=== PATIENT | male | born 1965 | race Caucasian/White ===

== ENCOUNTER 2019-02-18 02:49 | Emergency (ER) | payer OTHER ==
[2019-02-18 03:10] LABS: #Basophils 0.1 thou/uL (0.0-0.2); #Lymphocytes 3.1 thou/uL (1.20-3.40); #Monocytes 0.6 thou/uL (0.11-0.59); #Neutrophils 3.6 thou/uL (1.40-6.50); %Basophils 1.6 % (0.0-1.0); %Eosinophils 0.5 % (0.0-10.0); %Lymphocytes 41.6 % (21.0-51.0); %Monocytes 7.8 % (0.0-10.0); %Neutrophils 48.5 % (42.0-75.0); Hemoglobin 14.4 g/dL (14.0-18.0); Mean Corpuscular HGB CONC 34.6 g/dL (32.0-36.0); Mean Corpuscular Hemoglobin 33.8 pg (27.0-31.0); Mean Corpuscular Volume 97.7 fL (78.0-98.0); Mean Platelet Volume 7.1 fL (7.4-10.4); Platelet Count 272 thou/uL (130-400); RBC Distribution Width 11.6 % (11.5-14.5); Red Blood Cell (RBC) Count 4.27 mill/uL (4.70-6.10); White Blood Cell (WBC) Count 7.4 thou/uL (4.8-10.8)
[2019-02-18 03:28] LABS: ALT (SGPT) 21 U/L (8-55); AST (SGOT) 21 U/L (5-34); Albumin 4.1 g/dL (3.5-5.0); Alkaline Phosphatase 59 U/L (40-110); Anion Gap 15 mmol/L (10-20); BUN (Urea Nitrogen) 18 mg/dL (8.4-25.7); Bilirubin, Total 0.6 mg/dL (0.2-1.2); Calc. Creatinine Clearance 0 mL/min (70-130); Calcium 8.9 mg/dL (7.8-10.44); Carbon Dioxide 22 mmol/L (22-29); Chloride 104 mmol/L (98-107); Estimated GFR-MDRD 56; Globulin 2.6 g/dL (2.4-3.5); Glucose 149 mg/dL (70-105); Magnesium 1.9 mg/dL (1.6-2.6); Potassium 3.5 mmol/L (3.5-5.1); Protein, Total 6.7 g/dL (6.0-8.3); Sodium 137 mmol/L (136-145)
[2019-02-18] MEDS ORDERED: Aspirin Chewable 81 MG TAB ONE (04:11)
--- NOTE | 2019-02-18 08:51 | RAD ---
PORTABLE CHEST 1 VIEW: DATE: 02/18/2019. TIME: 2:46 a.m. HISTORY: Shortness of breath and tachycardia. FINDINGS/IMPRESSION: There are no previous exams for comparison. The heart size is borderline. The lungs are expanded without lobar consolidation, pneumothoraces, fr ank pulmonary edema, or pleural effusions. There is mild prominence of the pulmonary vascularity. POS: OFF
--- NOTE | 2019-02-20 23:09 | EKG ---
Test Reason : Blood Pressure : / mmHG Vent. Rate : 082 BPM Atrial Rate : 082 BPM P-R Int : 136 ms QRS Dur : 072 ms QT Int : 378 ms P-R-T Axes : 071 065 -04 degrees QTc Int : 441 ms Normal sinus rhythm Nonspecific ST and T wave abnormality No STEMI ST depression V3-V6 No ST depression Abnormal ECG Confirmed by VIGNESH Delgado, JAMES ([id number]), editor & co founder AMAN CHAPA ([id number]) on 02/20/2019 11:09:05 PM Referred By: Confirmed By:JAMES MEDELLIN M.D.
--- NOTE | 2019-02-20 23:10 | EKG ---
Test Reason : Blood Pressure : / mmHG Vent. Rate : 083 BPM Atrial Rate : 083 BPM P-R Int : 178 ms QRS Dur : 072 ms QT Int : 374 ms P-R-T Axes : 040 062 014 degrees QTc Int : 439 ms Normal sinus rhythm No STEMI Normal ECG Confirmed by JAMES MEDELLIN M.D. ([id number]), video editor AMAN CHAPA ([id number]) on 02/20/2019 11:09:34 PM Referred By: Confirmed By:JAMES MEDELLIN M.D.
== END 2019-02-18 12:20 ==
LOC: ERS 02:49
DX: N17.9 Acute kidney failure, unspecified (principal); R07.9 Chest pain, unspecified
CPT/HCPCS: 71045; 80053; 83735; 83880; 84443; 84484; 85025; 93005; 96360; 96361

== ENCOUNTER 2019-04-10 04:43 | Emergency (ER) | payer OTHER ==
[2019-04-10 05:17] LABS: #Basophils 0.1 thou/uL (0.0-0.2); #Monocytes 0.6 thou/uL (0.11-0.59); #Neutrophils 4.1 thou/uL (1.40-6.50); %Basophils 0.9 % (0.0-1.0); %Eosinophils 0.6 % (0.0-10.0); %Lymphocytes 38.2 % (21.0-51.0); %Monocytes 7.4 % (0.0-10.0); %Neutrophils 52.9 % (42.0-75.0); Hemoglobin 15.3 g/dL (14.0-18.0); Mean Corpuscular Hemoglobin 32.4 pg (27.0-31.0); Mean Corpuscular Volume 95.3 fL (78.0-98.0); Mean Platelet Volume 7.5 fL (7.4-10.4); Platelet Count 271 thou/uL (130-400); RBC Distribution Width 11.4 % (11.5-14.5); Red Blood Cell (RBC) Count 4.73 mill/uL (4.70-6.10); White Blood Cell (WBC) Count 7.8 thou/uL (4.8-10.8)
[2019-04-10 05:36] LABS: ALT (SGPT) 40 U/L (8-55); AST (SGOT) 25 U/L (5-34); Albumin 3.9 g/dL (3.5-5.0); Alkaline Phosphatase 76 U/L (40-110); Anion Gap 16 mmol/L (10-20); BUN (Urea Nitrogen) 18 mg/dL (8.4-25.7); Bilirubin, Total 0.7 mg/dL (0.2-1.2); Calc. Creatinine Clearance 0 mL/min (70-130); Carbon Dioxide 22 mmol/L (22-29); Chloride 103 mmol/L (98-107); Estimated GFR-MDRD 55; Globulin 2.8 g/dL (2.4-3.5); Glucose 226 mg/dL (70-105); Magnesium 1.7 mg/dL (1.6-2.6); Potassium 4.7 mmol/L (3.5-5.1); Protein, Total 6.7 g/dL (6.0-8.3); Sodium 136 mmol/L (136-145)
== END 2019-04-10 06:04 ==
LOC: ERS 04:43
DX: I47.1 Supraventricular tachycardia (principal); Z87.891 Personal history of nicotine dependence
CPT/HCPCS: 36415; 80053; 83735; 84484; 85025; 93005

== ENCOUNTER 2019-05-03 19:38 | Inpatient (IN) | payer OTHER ==
[2019-05-03] MEDS ORDERED: Aspirin Chewable 81 MG TAB ONE (19:55)
[2019-05-03 20:04] LABS: #Basophils 0.1 thou/uL (0.0-0.2); #Lymphocytes 2.9 thou/uL (1.20-3.40); #Monocytes 0.8 thou/uL (0.11-0.59); %Basophils 1.5 % (0.0-1.0); %Eosinophils 0.6 % (0.0-10.0); %Lymphocytes 36.7 % (21.0-51.0); %Monocytes 9.8 % (0.0-10.0); %Neutrophils 51.4 % (42.0-75.0); Hemoglobin 15.2 g/dL (14.0-18.0); Mean Corpuscular HGB CONC 34.3 g/dL (32.0-36.0); Mean Corpuscular Volume 96.1 fL (78.0-98.0); Mean Platelet Volume 7.2 fL (7.4-10.4); Platelet Count 275 thou/uL (130-400); RBC Distribution Width 11.5 % (11.5-14.5); White Blood Cell (WBC) Count 7.8 thou/uL (4.8-10.8)
[2019-05-03 20:11] LABS: INR-International Normal Ratio 0.9; PTT 30.6 SEC (22.9-36.1); Prothrombin Time 12.5 SEC (12.0-14.7)
--- NOTE | 2019-05-03 20:16 | RAD ---
FRONTAL VIEW CHEST: Indication: Chest tightness. FINDINGS: Comparing to 02-18-19 exam, no significant interval detrimental change. There is enlargement of the c ardiac silhouette with prominence of the pulmonary vasculature. IMPRESSION: Findings which may relate to fluid overload from CHF. Recommend clinical correlation in this regard. POS: MASTER
[2019-05-03 20:18] LABS: ALT (SGPT) 25 U/L (8-55); AST (SGOT) 18 U/L (5-34); Albumin 3.9 g/dL (3.5-5.0); Alkaline Phosphatase 68 U/L (40-110); Anion Gap 15 mmol/L (10-20); BUN (Urea Nitrogen) 14 mg/dL (8.4-25.7); Bilirubin, Total 0.6 mg/dL (0.2-1.2); Calc. Creatinine Clearance 0 mL/min (70-130); Calcium 8.8 mg/dL (7.8-10.44); Carbon Dioxide 23 mmol/L (22-29); Chloride 106 mmol/L (98-107); Estimated GFR-MDRD 59; Globulin 2.8 g/dL (2.4-3.5); Glucose 141 mg/dL (70-105); Potassium 4.4 mmol/L (3.5-5.1); Protein, Total 6.7 g/dL (6.0-8.3); Sodium 140 mmol/L (136-145)
[2019-05-03] MEDS ORDERED: Diltiazem 125 MG/25 ML ONE (20:59)
--- NOTE | 2019-05-03 20:59 | PDOC.FPRHP ---
- History of Present Illness Chief Complaint: Lightheadedness History of Present Illness: 54yo incarcerated M presented to the ED via EMS w/ complaint of lightheadedness and findings of tachycardia. Pt stated that he was walking back from lunch and bent over and immediately started to feel very lightheaded and experience chest tightness. He was checked out in the [facility] and was found to have a rapid heart rate. EMS found him to have a rate exceeding 200 bpm. They attempted adenosine conversion but were unsuccessful. Pt then received a loading dose of cardizem and converted to NSR. At time of eval pt was asymptomatic. Pt notes that he has had several episodes of SVT in the past. First episode was 5 years ago. He has been having them more frequently. Only takes metoprolol for this. Has been able to self convert a few times with valsalva but not today. 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 ED Course: 18 adenosine in route w/o conversion. Given loading dose of cardizem 16mg and converted to NSR. Started on cardizem gtt. 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 denies: edema Gastrointestinal: reports: nausea, vomiting. denies: diarrhea, constipation Genitourinary: denies: incontinence, dysuria Skin: denies: rashes, lesions Musculoskeletal: denies: pain, tenderness Neurological: reports: other (lightheadedness). denies: numbness, syncope Psychological: denies: depression, other - Vital signs BP: 113/74, MAP: 87, Pulse: 88, Resp: 17, Pain: 0, O2 sat: 97 on (Room Air), Wt : 88kg - Physical Exam Constitutional: NAD, awake, alert and oriented, well developed HEENT: normocephalic and atraumatic, EOMI, grossly normal vision, grossly normal hearing Neck: supple, FROM, no JVD Heart: RRR, normal S1/S2, no murmurs/rubs/gallops, pulses present, no edema Lungs: CTAB, no respiratory distress, good air movement, no rales/rhonchi, no wheezing Abdomen: soft, non-tender, bowel sounds present Musculoskeletal: normal structure, normal tone Neurological: no focal deficit, CN II-XII intact Skin: no rash/lesions, good turgor Heme/Lymphatic: no unusual bruising or bleeding, no purpura Psychiatric: normal mood and affect, good judgment and insight, intact recent and remote memory FMR H&P: Results - Labs Result Diagrams: 05/03/19 19:48 05/04/19 04:40 Lab results: WBC 7.8 thou/uL (4.8-10.8) 05/03/19 19:48 Hgb 15.2 g/dL (14.0-18.0) 05/03/19 19:48 Hct 44.2 % (42.0-52.0) 05/03/19 19:48 MCV 96.1 fL (78.0-98.0) 05/03/19 19:48 Plt Count 275 thou/uL (130-400) 05/03/19 19:48 Neutrophils % 51.4 % (42.0-75.0) 05/03/19 19:48 Sodium 140 mmol/L (136-145) 05/03/19 19:48 Potassium 4.4 mmol/L (3.5-5.1) 05/03/19 19:48 Chloride 106 mmol/L (98-107) 05/03/19 19:48 Carbon Dioxide 23 mmol/L (22-29) 05/03/19 19:48 BUN 14 mg/dL (8.4-25.7) 05/03/19 19:48 Creatinine 1.26 mg/dL (0.7-1.3) 05/03/19 19:48 Glucose 141 mg/dL (70-105) H 05/03/19 19:48 Calcium 8.8 mg/dL (7.8-10.44) 05/03/19 19:48 Total Bilirubin 0.6 mg/dL (0.2-1.2) 05/03/19 19:48 AST 18 U/L (5-34) 05/03/19 19:48 ALT 25 U/L (8-55) 05/03/19 19:48 Alkaline Phosphatase 68 U/L (40-110) 05/03/19 19:48 Serum Total Protein 6.7 g/dL (6.0-8.3) 05/03/19 19:48 Albumin 3.9 g/dL (3.5-5.0) 05/03/19 19:48 - EKG Interpretation EKG: normal sinus rhythm, Rate (beats per minute): 83, with no ectopics, Interpretation: normal EKG, CT interval 156 ms - Radiology Interpretation Chest x-ray Status: report reviewed by me (Findings which may suggest fluid overload from CHF. Correlate clinically.) FMR H&P: A/P - Problem List (1) Paroxysmal SVT (supraventricular tachycardia) Current Visit: Yes Status: Acute Code(s): I47.1 - SUPRAVENTRICULAR TACHYCARDIA (2) GERD (gastroesophageal reflux disease) Current Visit: Yes Status: Chronic Code(s): K21.9 - GASTRO-ESOPHAGEAL REFLUX DISEASE WITHOUT ESOPHAGITIS - Plan Paroxysmal Superventricular Tachycardia - Several episodes in the past, self converted on a few occasions - Adenosine unsuccessful initially, converted with loading cardizem w/ subsequent drip - Continue cardizem gtt w/ titration, plan for transition to oral - Consult cardiology in a.m. - Tele for continued cardiac rhythm monitoring - Echo to evaluate for possible underlying cardiomyopathy and CXR w/ findings related to CHF - clinically no signs of fluid overload Chronic problems GERD - Pepcid BID VTE: Lovenox IVF: SL, gtt Code: Full Deit: HH Dispo: Admit tele obs. ELOS <48 PCP: ANDRES FMR H&P: Upper Level - Pertinent history 54 yo M w/ PMH of recurrent SVT, distant IV drug use and alcohol use presents from [facility] for weakness and confusion and found to be in SVT on arrival @ a rate of approx 150. Successfully converted with adenosine in ER. Pt reports complete resolution of symptoms after successful cardioversion. He did report some chest discomfort that he is unable to describe during episode of rapid heart rate, denies SOB, nvdc, diaphoresis and abd pain. No recent alcohol or drug use. - Pertinent findings ROS: As above PE: Gen: NAD HEENT: NCAT, PERRLA, EOMI, Trach midline CV: RRR No MRG Resp: CTA bl no wrr Abd: Soft NTND bsx4 Neuro: No focal deficit Ext: No clubbing cyanosis or edema Psych: alert and cooperative - Plan Date/Time: 05/03/192057 I, Freddy Kaur DO, have evaluated this patient and agree with findings/ plan as outlined by [employer] certified internetwork expert resident. Pertinent changes/additions are listed here. 1) AVNRT/SVT - recurrent will admit to tele and cont diltiazem drip - consider cards consult in am vs transition to oral ccb for control of symptoms - trend troponins 2) H/O substance and alcohol abuse: no recent use - aware Dispo: Stable, admit to telemetry for continued observation. Consider conversion to oral CCB in am if rate remains controlled overnight. Addendum - Attending - Attending Attestation Date/Time: 05/04/19 5464 I personally discussed the patient with Dr Herzog at time of admission. I agree with the History, Examination, Assessment and Plan documented above with any addition or exceptions noted below.
[2019-05-03 23:03] VITALS: BMI 26.9
[2019-05-03] MEDS ORDERED: hydrOXYzine 10 MG TAB PO PRN (23:31)
[2019-05-04] MEDS ORDERED: Diltiazem 125 MG in Sodium Chloride 0.9% 100 ML IVPB SCH ×3 (00:36→09:00)
[2019-05-04 02:11] LABS: Troponin I 0.039 ng/mL (< 0.028)
[2019-05-04 05:16] LABS: Anion Gap 10 mmol/L (10-20); BUN (Urea Nitrogen) 14 mg/dL (8.4-25.7); Calc. Creatinine Clearance 110 mL/min (70-130); Calcium 8.3 mg/dL (7.8-10.44); Carbon Dioxide 23 mmol/L (22-29); Chloride 108 mmol/L (98-107); Estimated GFR-MDRD 84; Glucose 99 mg/dL (70-105); Potassium 4.2 mmol/L (3.5-5.1); Sodium 137 mmol/L (136-145)
[2019-05-04 05:19] LABS: Troponin I 0.027 ng/mL (< 0.028)
--- NOTE | 2019-05-04 05:44 | PDOC.FM ---
- Subjective Subjective: Patient has no complaints this morning. His HR has been in the 60s and 70s during the night. - Objective Vital Signs & Weight: Vital Signs (12 hours) Temp Pulse Resp BP Pulse Ox 05/04/19 04:28 98.1 F 70 18 114/76 98 05/03/19 23:10 79 17 126/68 05/03/19 22:15 98.4 F 74 16 124/82 97 Weight Weight 87.77 kg Result Diagrams: 05/03/19 19:48 05/04/19 04:40 Phys Exam - Physical Examination Constitutional: NAD HEENT: moist MMs Neck: no JVD, supple, full ROM Respiratory: no wheezing, no rhonchi, clear to auscultation bilateral Cardiovascular: RRR, no significant murmur Gastrointestinal: soft, non-tender, no distention, positive bowel sounds Musculoskeletal: no edema, pulses present Neurological: normal sensation, moves all 4 limbs Psychiatric: normal affect, A&O x 3 Skin: no rash, normal turgor Dx/Plan (1) Paroxysmal SVT (supraventricular tachycardia) Code(s): I47.1 - SUPRAVENTRICULAR TACHYCARDIA Status: Acute (2) GERD (gastroesophageal reflux disease) Code(s): K21.9 - GASTRO-ESOPHAGEAL REFLUX DISEASE WITHOUT ESOPHAGITIS Status: Chronic - Plan Plan: Patient is a 54 yo male with hx of SVT who presents after conversion of SVT to NSR: #Paroxysmal Superventricular Tachycardia - Several episodes in the past, self converted on a few occasions - Adenosine 12 mg unsuccessful initially, converted with loading cardizem w/ subsequent drip - Continue cardizem gtt w/ titration, plan for transition to oral later today - Consult Cardiology this morning, consider EP consult based on Cardio recs - Placed on Telemetry for continued cardiac rhythm monitoring - Echo to evaluate for possible underlying cardiomyopathy and CXR w/ findings related to CHF - clinically no signs of fluid overload - hold home Metoprolol while on Cardizem #GERD - Pepcid BID VTE: Lovenox IVF: SL, gtt Code status: FULL Deit: HH Dispo: Stable, admitted to observation on telemetry. Plan for transition to oral CCB later today. Expect discharge in <48 hrs. PCP: ANDRES Addendum - Attending - Attending Attestation Date/Time: 05/04/19 1001 I personally evaluated the patient and discussed the management with Dr. Alexandra. I agree with the History, Examination, Assessment and Plan documented above with any addition or exceptions noted below. Patient is stable on cardizem drip. He has been seen by cardiology who recommends ablation. Will consult EP.
[2019-05-04] MEDS ORDERED: Diltiazem HCl SR 60 mg Capsule PO SCH (09:00)
[2019-05-04] MEDS: Enoxaparin Sodium 40 MG/0.4 ML SYRINGE SC SCH (10:14)
[2019-05-04] MEDS: Famotidine 20 MG TAB PO SCH ×2 (10:14→22:11)
--- NOTE | 2019-05-04 13:50 | CON ---
DATE OF CONSULTATION: HISTORY OF PRESENT ILLNESS: A 54-year-old gentleman with history of SVT, who presents for recurrent palpitations. The patient has a long history of SVT. The patient states that he had his first episode approximately 4 years ago. The patient has had several episodes most recently. He was in the emergency room with SVT and had to undergo electrical cardioversion. He states that he has been taking his medication. Once again, he developed rapid palpitations. He felt lightheaded. The patient denied having any chest discomfort. PAST MEDICAL HISTORY: 1. SVT. 2. Abdominal surgery and knee surgery. ALLERGIES: NONE. MEDICATIONS: 1. Metoprolol 50 b.i.d. 2. Aspirin 81 daily. 3. Prilosec 20 daily. FAMILY HISTORY: Positive family history of heart disease. REVIEW OF SYSTEMS: Ten-point system otherwise unremarkable. PHYSICAL EXAMINATION: GENERAL: A well-developed gentleman, in no acute distress. VITAL SIGNS: Blood pressure 122/78. NECK: No jugular venous distention. LUNGS: Clear to auscultation. HEART: Regular rate and rhythm. Normal S1 and S2. No murmurs. ABDOMEN: Nondistended. EXTREMITIES: No edema. LABORATORY DATA: Sodium 137, potassium 4.2, chloride 108, bicarbonate 23, BUN 14, and creatinine 0.93. Troponin 0.027. White blood cell count 7.8, hemoglobin 15.2, hematocrit 44.2, and platelets are 273. His INR was 0.9. His EKG revealed normal sinus rhythm with a normal ECG. Telemetry monitoring supraventricular tachycardia. IMPRESSION: Supraventricular tachycardia. PLAN: This gentleman presents with SVT. We would recommend EP consultation and probable ablation since he has these symptoms occur frequently. We will follow this patient with you through his hospitalization. Job ID: [id number] [facility]
--- NOTE | 2019-05-04 14:27 | EKG ---
Test Reason : Blood Pressure : / mmHG Vent. Rate : 083 BPM Atrial Rate : 083 BPM P-R Int : 156 ms QRS Dur : 080 ms QT Int : 382 ms P-R-T Axes : 076 060 021 degrees QTc Int : 448 ms Normal sinus rhythm Normal ECG Confirmed by DORIAN GARCIA ([id number]), digital editor MANDY ZUNIGA ([id number]) on 05/04/2019 2:26:42 PM Referred By: Confirmed By:DORIAN GARCIA
[2019-05-04] MEDS: Acetaminophen 325 MG TAB PO PRN ×2 (15:29→22:11)
[2019-05-05 05:25] LABS: #Basophils 0.1 thou/uL (0.0-0.2); #Eosinphils 0.1 thou/uL (0.0-0.7); #Lymphocytes 2.7 thou/uL (1.20-3.40); #Monocytes 0.9 thou/uL (0.11-0.59); #Neutrophils 3.1 thou/uL (1.40-6.50); %Eosinophils 0.8 % (0.0-10.0); %Lymphocytes 39.1 % (21.0-51.0); %Monocytes 13.5 % (0.0-10.0); %Neutrophils 44.7 % (42.0-75.0); Hemoglobin 15.4 g/dL (14.0-18.0); Mean Corpuscular HGB CONC 34.2 g/dL (32.0-36.0); Mean Corpuscular Hemoglobin 32.8 pg (27.0-31.0); Mean Corpuscular Volume 96.1 fL (78.0-98.0); Mean Platelet Volume 7.2 fL (7.4-10.4); Platelet Count 267 thou/uL (130-400); RBC Distribution Width 11.3 % (11.5-14.5); Red Blood Cell (RBC) Count 4.69 mill/uL (4.70-6.10); White Blood Cell (WBC) Count 6.9 thou/uL (4.8-10.8)
[2019-05-05 05:44] LABS: Anion Gap 11 mmol/L (10-20); BUN (Urea Nitrogen) 13 mg/dL (8.4-25.7); Calc. Creatinine Clearance 94 mL/min (70-130); Calcium 9.3 mg/dL (7.8-10.44); Carbon Dioxide 28 mmol/L (22-29); Chloride 104 mmol/L (98-107); Estimated GFR-MDRD 75; Glucose 91 mg/dL (70-105); Potassium 4.3 mmol/L (3.5-5.1); Sodium 139 mmol/L (136-145)
--- NOTE | 2019-05-05 05:44 | PDOC.FM ---
- Subjective Subjective: Patient has no complaints this morning. He is scheduled to have an ablation procedure with Dr. Peck on 05/06. Telemetry overnight shows HR in 50s-60s, with Dilt drip discontinued at 0600 today. - Objective Vital Signs & Weight: Vital Signs (12 hours) Temp Pulse Resp BP BP Pulse Ox 05/05/19 04:58 98 F 73 12 130/89 93 L 05/04/19 22:11 97.6 F 84 16 138/84 96 Weight Weight 82.599 kg I&O: 05/03/19 05/04/19 05/05/19 06:59 06:59 06:59 Intake Total 450 2730 Output Total 1000 3625 Balance -550 -895 Result Diagrams: 05/05/19 04:44 05/05/19 04:44 Phys Exam - Physical Examination Constitutional: NAD HEENT: moist MMs, sclera anicteric Neck: no JVD, supple, full ROM Respiratory: no wheezing, no rhonchi, clear to auscultation bilateral Cardiovascular: RRR, no significant murmur Gastrointestinal: soft, no distention, positive bowel sounds Musculoskeletal: no edema, pulses present Neurological: normal sensation, moves all 4 limbs Psychiatric: normal affect, A&O x 3 Skin: no rash, normal turgor Dx/Plan (1) Paroxysmal SVT (supraventricular tachycardia) Code(s): I47.1 - SUPRAVENTRICULAR TACHYCARDIA Status: Acute (2) GERD (gastroesophageal reflux disease) Code(s): K21.9 - GASTRO-ESOPHAGEAL REFLUX DISEASE WITHOUT ESOPHAGITIS Status: Chronic - Plan Plan: Patient is a 54 yo male with hx of SVT who presents after conversion of SVT to NSR: #Paroxysmal Superventricular Tachycardia - Several episodes in the past, self converted on a few occasions - Adenosine 12 mg unsuccessful initially, converted with loading cardizem w/ subsequent drip - Continue cardizem gtt w/ titration, plan for transition to oral diltiazem later today - Consult Cardiology--Dr. Campoverde--appreciate recs, consider EP consult, started on Metoprolol 25 mg BID and transition cardizem drip to oral diltiazem 60 mg ER BID - Placed on Telemetry for continued cardiac rhythm monitoring--no events of SVT in past 24 hrs - Echo to evaluate for possible underlying cardiomyopathy and CXR w/ findings related to CHF--completed 05/04, showed EF 55-60% - clinically no signs of fluid overload - hold home Metoprolol 50 mg BID while on Cardizem - Consult EP--Dr. Peck--appreciated recs, will plan for ablation on 05/06 @ 1130 #GERD - Pepcid BID VTE: Lovenox IVF: SL, gtt Code status: FULL Deit: HH Dispo: Stable, admitted to observation on telemetry. Plan for transition to oral CCB later today. Plan for ablation procedure with Dr. Peck on 05/06. Expect discharge in 2-3 days. PCP: [facility] Addendum - Attending - Attending Attestation Date/Time: 05/05/19 1028 I personally evaluated the patient and discussed the management with Dr. Alexandra. I agree with the History, Examination, Assessment and Plan documented above with any addition or exceptions noted below. Patient is rate controlled. He is scheduled for ablation tomorrow.
[2019-05-05] MEDS: Diltiazem HCl SR 60 mg Capsule PO SCH ×2 (09:37→20:36)
[2019-05-05] MEDS: Famotidine 20 MG TAB PO SCH ×2 (09:37→20:36)
[2019-05-05] MEDS: Enoxaparin Sodium 40 MG/0.4 ML SYRINGE SC SCH (09:37)
[2019-05-05] MEDS: Aspirin 81 mg Enteric Coated Tablet PO SCH (09:37)
[2019-05-05] MEDS: Acetaminophen 325 MG TAB PO PRN (09:38)
--- NOTE | 2019-05-06 06:02 | PDOC.FM ---
- Subjective Subjective: Patient resting in bed this morning, appears comfortable. Voices no complaints. Says he was able to get his lunch and dinner meals yesterday. Telemetry overnight shows no events, has been in sinus rhythm in the 60s-70s. - Objective Vital Signs & Weight: Vital Signs (12 hours) Temp Pulse Resp BP Pulse Ox 05/06/19 04:26 98.0 F 70 14 108/78 97 05/05/19 20:00 94 L 05/05/19 19:37 98.1 F 67 20 108/75 94 L Weight Weight 84.323 kg I&O: 05/04/19 05/05/19 05/06/19 06:59 06:59 06:59 Intake Total 450 2730 1660 Output Total 1000 3625 200 Balance -550 -895 1460 Result Diagrams: 05/05/19 04:44 05/05/19 04:44 Phys Exam - Physical Examination Constitutional: NAD HEENT: moist MMs, sclera anicteric Neck: no JVD, supple, full ROM Respiratory: no wheezing, no rhonchi, clear to auscultation bilateral Cardiovascular: RRR, no significant murmur Gastrointestinal: soft, non-tender, positive bowel sounds Musculoskeletal: no edema, pulses present Neurological: normal sensation, moves all 4 limbs Psychiatric: normal affect, A&O x 3 Skin: no rash, normal turgor Dx/Plan (1) Paroxysmal SVT (supraventricular tachycardia) Code(s): I47.1 - SUPRAVENTRICULAR TACHYCARDIA Status: Acute (2) GERD (gastroesophageal reflux disease) Code(s): K21.9 - GASTRO-ESOPHAGEAL REFLUX DISEASE WITHOUT ESOPHAGITIS Status: Chronic - Plan Plan: Patient is a 54 yo male with hx of SVT who presents after conversion of SVT to NSR: #Paroxysmal Superventricular Tachycardia - Several episodes in the past, self converted on a few occasions - Adenosine 12 mg unsuccessful initially, converted with loading cardizem w/ subsequent drip - Cardizem gtt w/ titration discontinued on 05/05 and transitioned to oral Diltiazem ER 60 mg BID - Consult Cardiology--Dr. Campoverde--appreciate recs, rec EP consult, started on Metoprolol 25 mg BID and transition cardizem drip to oral diltiazem - Placed on Telemetry for continued cardiac rhythm monitoring--no events of SVT in past 24 hrs - Echo to evaluate for possible underlying cardiomyopathy and CXR w/ findings related to CHF--completed 05/04, showed EF 55-60% - clinically no signs of fluid overload - hold home Metoprolol 50 mg BID while on Cardizem - Consult EP--Dr. Peck--appreciated recs, will plan for ablation on 05/06 @ 1130 #GERD - Pepcid BID VTE: Lovenox IVF: SL, gtt Code status: FULL Deit: HH Dispo: Stable, admitted to observation on telemetry. Plan for ablation procedure with Dr. Peck later this morning. Expect discharge in 1-2 days. PCP: [facility] Addendum - Attending - Attending Attestation Date/Time: 05/06/19 9976 I personally evaluated the patient and discussed the management with Dr. Alexandra. I agree with the History, Examination, Assessment and Plan documented above with any addition or exceptions noted below. The patient is in sinus rhythm with rate controlled. Will have ablation today.
[2019-05-06] MEDS: Aspirin 81 mg Enteric Coated Tablet PO SCH (08:44)
[2019-05-06] MEDS ORDERED: Heparin (Artline) 500 ML ONE (10:59)
[2019-05-06] MEDS ORDERED: Heparin 10,000 UNITS/1 ML VIAL ONE (11:01)
[2019-05-06] MEDS ORDERED: Propofol 500 MG/50 ML VIAL ONE ×2 (11:14→11:15)
[2019-05-06] MEDS ORDERED: Isoproterenol 0.2 MG/1 ML AMP ONE (11:51)
--- NOTE | 2019-05-06 12:11 | CON ---
DATE OF CONSULTATION: 05/06/2019 This is Marie Saenz NP dictating a report for Pedro Pekc MD. REASON FOR CONSULTATION: SVT. REFERRING PHYSICIAN: Dr. Alexandra. The physician consulted was Dr. Pedro Peck. This report is dictated as scribe. HISTORY OF PRESENT ILLNESS: Mr. Candelario is a 54-year-old male, who is currently incarcerated. He was having heart racing with palpitations and some chest pressure and was brought to the emergency room for evaluation. He was found to have heart rate of approximately 200 beats per minute. Adenosine cardioversion was unsuccessful. He received a loading dose of Cardizem and converted to sinus rhythm. Other than his heart racing, palpitations, and some mild chest pressure, he was not having any associated symptoms such as diaphoresis, sweating, nausea, or chest pain. He reports that he has had this issue for approximately 4 to 5 years, but has had 3 episodes in the past 8 months had been more frequent. He has been able to terminate his tachy events in the past with Valsalva before but that did not work with this current episode. He has been told in the past that he may need an ablation to address this, thus the EP consultation. Mr. Candelario is feeling well. He denies any current heart racing, palpitations, chest pain, pressure, syncope, near syncope, stroke, or stroke-like symptoms. Adenosine 18 mg en route without cardioversion via EMS. He was given loading dose of Cardizem 60 mg, which converted him to sinus rhythm and then was started on a Cardizem drip. REVIEW OF SYSTEMS: Twelve-point review of systems is negative except that listed above in the HPI. ALLERGIES: NO KNOWN DRUG ALLERGIES. PAST MEDICAL HISTORY: History of SVT and acid reflux. PAST SURGICAL HISTORY: Pneumothorax, back surgery, splenectomy, and right total knee. FAMILY HISTORY: Positive for coronary artery disease in his maternal side. SOCIAL HISTORY: Thirty pack-year history. History of alcoholism. History of meth and cocaine use, sober for 17 years, currently incarcerated. PHYSICAL EXAMINATION: VITAL SIGNS: Temperature 98.1, pulse 66, blood pressure 111/73, respirations 20, and oxygen is 95% on room air. GENERAL: The patient is alert oriented. Speech is clear. Affect is appropriate. He is in no apparent distress at the time of exam. NECK: Supple without lymphadenopathy. There is no carotid bruit and trachea is midline. CARDIAC: Heart rate is regular with crisp S1 and S2. PMI is nondisplaced. LUNGS: Clear to auscultation bilaterally without wheezes, crackles, or rhonchi. Respirations are even and unlabored with good bilateral excursion. ABDOMEN: Soft, nontender without palpable masses. EXTREMITIES: Warm and dry to touch. Well perfused without clubbing, cyanosis, or edema. He is in restraints. NEUROLOGIC: Grossly intact and nonfocal. DATABASE: Laboratories reviewed and is unremarkable. Telemetry and EKGs were all personally reviewed and reflect sinus rhythm. There was an episode of SVT on 05/03 at approximately midnight that was 5 minutes in duration. Onset was with PACs and PVCs episode. We see a short RP interval, which spontaneously terminates with a slight conversion pause of 1 second before restoring sinus rhythm. IMPRESSION: 1. 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 2. Ejection fraction preserved at 55% to 60% by echo on 05/04/2019 with a normal size atrium. PLAN AND RECOMMENDATIONS: We discussed mechanisms and treatment options for SVT. As he has had these episodes before that have been responsive to Valsalva maneuvers and appear to be possibly AVNRT, we would discuss ablation as a treatment option. He understands the risks, benefits, and alternatives including bleeding at the groin site, bleeding around the heart, possible need for chest tube placement and/or bradycardic arrhythmias, pacemaker. He is willing to proceed. The alternate therapy would be medical management. He was already on the low dose of beta-juliana with metoprolol tartrate 50 mg p.o. b.i.d., but he again prefers ablation. He is n.p.o. today. We will take him down to the EP lab for study and ablation at the earliest convenience. Job ID: [id number]
[2019-05-06] MEDS ORDERED: Fentanyl 100 MCG/2 ML VIAL ONE (13:38)
--- NOTE | 2019-05-06 14:16 | OP ---
DATE OF PROCEDURE: 05/06/2019 PROCEDURES PERFORMED: Electrophysiology study and radiofrequency ablation. REASON FOR PROCEDURE: Mr. Candelario is a 54-year-old male with prior history of recurrent supraventricular tachycardia episodes. He is here for EP study and ablation procedure. DESCRIPTION OF PROCEDURE: The patient received deep sedation by Anesthesia specialist. The left and right femoral venous areas were prepped, draped, and anesthetized using subcutaneous lidocaine. Under ultrasound guidance, both femoral veins were cannulated. On the left side, a 6 and 8-[place]izen [place] sheath were used to introduce an octapolar and decapolar catheter to the right atrium, His bundle, right ventricular, and CS position. Pacing, mapping, and recording were performed at each location. Following findings were noted. Baseline rhythm was sinus rhythm, RR interval 753 msec, DE 121 msec, QRS 56 msec, QT 358 msec, AH 80 msec, HV 43 msec. The AV Wenckebach cycle length was 280 msec. Retrograde Wenckebach cycle length was also 280 msec. Concentric retrograde VA conduction was seen. During the atrial extrastimuli testing, a narrow complex tachycardia was induced with cycle length about 300 msec with short VA timing suggestive of AV clay reentrant tachycardia. VA timing was less than 80 msec. Overdrive ventricular pacing entrained the tachycardia and at termination of the ventricular pacing, VA response was seen suggestive of no atrial tachycardia present. Following that, repeated pacing maneuvers were performed also and on one occasion, AV caly reentrant tachycardia induced with 2:1 AV block in the AV clay level. On the right femoral venous area, an 8-[place]izen [place] sheath was introduced under ultrasound guidance and a 4 mm standard ablation catheter was advanced into the right atrium. 3D map of the right atrium, His bundle, and CS were obtained and slow pathway modification was performed delivering total of 7 lesions at total duration 2 minutes and 12 seconds at 40 richardson. During the application, junctional beats were observed. After the ablation, the AV Wenckebach cycle length was changed to 340 msec. The AV Wenckebach improved to 220 seconds on Isuprel administration. No evidence of slow pathway was noted on burst atrial pacing and also with atrial extrastimuli testing, atrial ERP was measured at 600/240 msec. During burst atrial pacing and Isuprel, bundle-branch ablation was noted with normal HV interval. Both right and left bundle-branch was inducible during rapid atrial pacing. HV interval again was normal at both occasions. No additional tachyarrhythmias were induced on and off Isuprel. At the end of the case, cardiac silhouette did not change and catheter was removed, sheath as well, and hemostasis was obtained with manual pressure. CONCLUSION: 1. Inducible AV clay reentrant tachycardia. 2. Slow pathway modification eliminating inducibility of AV caly reentrant tachycardia and no evidence of slow pathway and with ablation seen. 3. No evidence of accessory pathway present. 4. Rate dependent bundle-branch block is seen with normal HV interval. PLAN: Continue monitoring for recurrent arrhythmias. Job ID: [id number]
[2019-05-06] MEDS: Enoxaparin Sodium 40 MG/0.4 ML SYRINGE SC SCH (14:50)
[2019-05-06] MEDS: Diltiazem HCl SR 60 mg Capsule PO SCH ×2 (14:50→20:23)
[2019-05-06] MEDS: Famotidine 20 MG TAB PO SCH ×2 (14:50→20:23)
[2019-05-06] MEDS ORDERED: Acetaminophen/Codeine 30-300mg Tablet PO PRN ×2 (16:15)
--- NOTE | 2019-05-07 05:44 | PDOC.FM ---
- Subjective Subjective: Patient doing well this morning. Denies any chest pain or any feelings of palpitations. Patient reports procedure went well yesterday. Discussed with patient that we are working with Dr. Peck for further recommendations. Patient agreeable with plan of care. - Objective MAR Reviewed: Yes Vital Signs & Weight: Vital Signs (12 hours) Temp Pulse Resp BP BP Pulse Ox 05/07/19 03:29 98.5 F 83 16 100/68 95 05/07/19 01:01 98.5 F 89 113/72 05/06/19 23:20 99.8 F H 98 16 94/60 94 L 05/06/19 19:20 98.6 F 117 H 17 118/73 95 05/06/19 18:30 124 H 17 119/69 97 Weight Weight 84.323 kg I&O: 05/05/19 05/06/19 05/07/19 06:59 06:59 06:59 Intake Total 2730 1660 1385 Output Total 3625 200 0 Balance -895 1460 1385 Result Diagrams: 05/05/19 04:44 05/05/19 04:44 EKG Reviewed by me: Yes (sinus tach, 115; 140-150 while patient walking) Phys Exam - Physical Examination Constitutional: NAD HEENT: moist MMs, sclera anicteric Neck: supple, full ROM Respiratory: no wheezing, clear to auscultation bilateral Cardiovascular: no significant murmur sinus tach Gastrointestinal: soft, non-tender Musculoskeletal: no edema, pulses present Neurological: non-focal, normal sensation Psychiatric: normal affect, A&O x 3 Skin: no rash, normal turgor Dx/Plan (1) Paroxysmal SVT (supraventricular tachycardia) Code(s): I47.1 - SUPRAVENTRICULAR TACHYCARDIA Status: Acute (2) GERD (gastroesophageal reflux disease) Code(s): K21.9 - GASTRO-ESOPHAGEAL REFLUX DISEASE WITHOUT ESOPHAGITIS Status: Chronic - Plan Plan: Patient is a 54 yo male with hx of SVT who presents after conversion of SVT to NSR: #Paroxysmal Superventricular Tachycardia - Reportedly several episodes in the past, self converted on a few occasions - Adenosine 12 mg unsuccessful initially, converted with loading diltiazem w/ subsequent drip - Diltiazem gtt w/ titration discontinued on 05/05 and transitioned to oral Diltiazem ER 60 mg BID - Consult Cardiology--Dr. Campoverde--appreciate recs, rec EP consult, started on Metoprolol 25 mg BID and transitioned cardizem drip to oral diltiazem - Placed on Telemetry for continued cardiac rhythm monitoring--no events of SVT in past 24 hrs, though has had heart rate in 140s-150s while walking to restroom overnight - Echo to evaluate for possible underlying cardiomyopathy and CXR w/ findings related to CHF -Echo showed EF 55-60% - clinically no signs of fluid overload - Consult EP--Dr. Peck--appreciated recs, Ep study and ablation on 05/06, rec continued monitoring for arrhythmias overnight #GERD - Pepcid BID VTE: Lovenox IVF: SL Code status: FULL Diet: HH Dispo: Stable, admitted to observation on telemetry s/p EP study and ablation. Dr. Peck consulted, appreciate recs. PCP: [facility] Addendum - Attending - Attending Attestation Date/Time: 05/07/19 1040 I personally evaluated the patient and discussed the management with Dr. Alexandra. I agree with the History, Examination, Assessment and Plan documented above with any addition or exceptions noted below. Patient doing well. He had some tachycardia overnight. EP has seen him today and cleared him for discharge with metoprolol.
[2019-05-07 08:23] VITALS: BP 110/77; TEMP 97.3
[2019-05-07] MEDS: Famotidine 20 MG TAB PO SCH (08:45)
[2019-05-07] MEDS: Aspirin 81 mg Enteric Coated Tablet PO SCH (08:45)
[2019-05-07] MEDS: Enoxaparin Sodium 40 MG/0.4 ML SYRINGE SC SCH (08:45)
--- NOTE | 2019-05-07 10:34 | PDOC.EP ---
- Subjective Date: 05/07/19 Time: 10:33 Interval History: Follow up for SVT s/p EPS and ablation on 05/06/19. Denies any heart racing, palpitations, chest pain, pressure, passing out, or bleeding at the groin access sites. - Review of Systems Constitutional: denies: chills, fever, malaise, sweats, weakness, other Respiratory: denies: cough, dry, hemoptysis, pleuritic pain, shortness of breath , SOB with excertion, sputum, wheezing, other Cardiology: denies: chest pain, edema, heart racing, light headedness, paroxysmal noc. dyspnea, orthopnea, palpitations, passing out, pleuritic pain, pressure, swelling, other - Objective Allergies/Adverse Reactions: Allergies Allergy/AdvReac Type Severity Reaction Status Date / Time No Known Allergies Allergy Verified 05/04/19 00:10 Current Medications Acetaminophen (Tylenol) 650 mg PO Q4H PRN PRN Reason: Headache/Fever/Mild Pain (1-3) Last Admin: 05/05/19 09:38 Dose: 650 mg Acetaminophen/Codeine Phosphate (Tylenol #3) 1 tab PO Q4H PRN PRN Reason: Mild Pain (1-3) Acetaminophen/Codeine Phosphate (Tylenol #3) 2 tab PO Q4H PRN PRN Reason: Moderate Pain (4-6) Last Admin: 05/06/19 16:15 Dose: 2 tab Aspirin (Ecotrin) 81 mg PO DAILY [facility] Last Admin: 05/07/19 08:45 Dose: 81 mg Enoxaparin Sodium (Lovenox) 40 mg SC 0900 [facility] Last Admin: 05/07/19 08:45 Dose: 40 mg Famotidine (Pepcid) 20 mg PO BID [facility] Last Admin: 05/07/19 08:45 Dose: 20 mg Hydroxyzine HCl (Atarax) 10 mg PO HS PRN PRN Reason: Insomnia Last Admin: 05/04/19 22:16 Dose: 10 mg Metoprolol Succinate (Toprol Xl) 25 mg PO BID [facility] Last Admin: 05/07/19 08:45 Dose: 25 mg Pantoprazole Sodium (Protonix) 40 mg PO DAILY [facility] Last Admin: 05/07/19 08:45 Dose: 40 mg Sodium Chloride (Flush - Normal Saline) 10 ml IVF PRN PRN PRN Reason: Saline Flush Vital Signs & Weight: Vital Signs Temp Pulse Resp BP BP Pulse Ox 05/07/19 08:55 95 05/07/19 08:03 97.3 F L 79 16 110/77 95 05/07/19 07:50 95 05/07/19 03:29 98.5 F 83 16 100/68 95 05/07/19 01:01 98.5 F 89 113/72 05/06/19 23:20 99.8 F H 98 16 94/60 94 L Weight 185 lb 14.4 oz I/O: I/O 05/06/19 05/07/19 05/08/19 06:59 06:59 06:59 Intake Total 1660 1385 480 Output Total 200 0 Balance 1460 1385 480 - Physical Exam General: alert & oriented x3, appears well, no apparent distress, speech clear, affect appropriate HEENT: mucus membranes moist, normocephaly Neck: supple neck, midline trachea, no JVD/HJR, no masses, no bruit, no lymphadenopathy, no thromegaly Cardiology: regular rate and rhythm, no murmur, regular rate, regular rhythm, PMI nondisplaced Lungs: clear to auscultation, normal breath sounds, no wheeze, rales, rhonchi Skin: groin sites stable - Labs Result Diagrams: 05/05/19 04:44 05/05/19 04:44 - EKG Interpretation EKG shows: Sinus rhythm - Assessment/Plan Assessment/Plan: 1. SVT - EP study on 05/06. Inducible for AVNRT and underwent slow pathway modification. Had sinus tachycardia yesterday evening before metoprolol was given. No futher events overnight or this AM. It was sinus tach, not AVNRT. OK for DC by EP. Continue metoprolol
--- NOTE | 2019-05-07 13:08 | EKG ---
Test Reason : POST ABLATION Blood Pressure : / mmHG Vent. Rate : 087 BPM Atrial Rate : 087 BPM P-R Int : 152 ms QRS Dur : 074 ms QT Int : 372 ms P-R-T Axes : 052 055 007 degrees QTc Int : 447 ms Normal sinus rhythm Normal ECG Confirmed by FRANKLIN PETE ([id number]) on 05/07/2019 1:08:16 PM Referred By: [facility] Confirmed By:FRANKLIN PETE
--- NOTE | 2019-05-07 13:09 | DIS ---
DATE OF ADMISSION: 05/03/2019 DATE OF DISCHARGE: 05/07/2019 ADMITTING RESIDENT: Cristobal Herzog DO. ADMITTING ATTENDING: Iván Giles MD. DISCHARGE RESIDENT: Page Quinonez MD. DISCHARGE ATTENDING: Valentina James MD. CONSULTS: 1. Cardiology, Dr. Campoverde. 2. Electrophysiology, Dr. Peck. PROCEDURES: Electrophysiology study and ablation. IMAGIN. Chest x-ray: Findings may relate to fluid overload from CHF. Recommend clinical correlation. 2. Echo: EF is visually estimated at 55% to 60%. Normal size left atrium. Mildly enlarged right atrium size. Mildly enlarged right ventricle cavity. Left ventricular size is normal. There is a small localized pericardial effusion noted. PRIMARY DIAGNOSIS: Paroxysmal supraventricular tachycardia. SECONDARY DIAGNOSIS: Gastroesophageal reflux disease. DISCHARGE MEDICATIONS: 1. 81 mg aspirin p.o. daily. 2. 20 mg esomeprazole magnesium p.o. daily. 3. 25 mg metoprolol succinate p.o. b.i.d. Discontinued medications; 1. Lovenox. 2. Famotidine. 3. Protonix. 4. Acetaminophen with codeine. 5. Acetaminophen. 6. Metoprolol tartrate 50 p.o. b.i.d. 7. Diltiazem p.o. b.i.d. 8. Hydroxyzine p.o. at bedtime p.r.n. HISTORY OF PRESENT ILLNESS/HOSPITAL COURSE: The patient is a 54-year-old incarcerated male, who presented to the ED with complaint of lightheadedness and findings of tachycardia. EMS had found him to have a rate exceeding 200 beats per minute after which they attempted adenosine conversion, but were unsuccessful. The patient then received a loading dose of Cardizem and converted to normal sinus rhythm, and he was started on a Cardizem drip. The Cardizem drip was then titrated and it was discontinued on 05/05. The patient was transitioned to oral Cardizem ER 60 mg b.i.d. Cardiology was consulted, Dr. Campoverde, and recommended an electrophysiology consult and started on metoprolol 25 mg b.i.d. Electrophysiology, Dr. Peck, was consulted and the patient underwent an electrophysiology study and ablation on 05/06, with continued monitoring overnight recommended on telemetry to watch for arrhythmias. The patient was monitored on telemetry throughout his hospitalization and on the night before discharge, the patient had a bout of tachycardia before the patient had received his metoprolol , but had then remained largely in regular sinus throughout the rest of the evening. Dr. Peck consulted the patient on the day of discharge and said he was stable for discharge with recommendation of continuance of the metoprolol. All of the findings and suggestions were discussed with the patient, who was agreeable with the plan of care. The patient was examined on the day of discharge and found to be in stable condition. DISPOSITION: Stable. DISCHARGE INSTRUCTIONS: 1. Location: [facility]. 2. Diet: Heart healthy. 3. Activity: Cardiopulmonary restrictions. 4. Follow up with primary care provider within 7 days. Job ID: [id number] MTDD
--- NOTE | 2019-05-10 08:11 | PQF ---
GUS MALAGON GABRIEL MD [id number] [facility] [id number] CLINICAL DOCUMENTATION CLARIFICATION FORM: POST DISCHARGE Addendum to original discharge summary date: ____ Late entry note date: __ DATE:05/10/2019 ATTN: BILLY MCLEOD MD Please exercise your independent, professional judgment in responding to the clarification form. Clinical indicators are provided on the bottom of this form for your review Please check appropriate box(s): HEART FAILURE: A. TYPE: [ ] Systolic / HFrEF [ ] Diastolic / HFpEF [ ] Combined Systolic / Diastolic B. ACUITY [ ] Acute [ ] Acute on Chronic [ ] Chronic [ ] Other diagnosis [ ] Unable to determine In addition, please specify: Present on Admission (POA): [ ] Yes [ ] No [ ] Unable to determine For continuity of documentation, please document condition throughout progress notes and discharge summary. Thank You. CLINICAL INDICATORS - SIGNS / SYMPTOMS / LABS Paroxysmal supraventricular tachycardia -Documented in Family medicine progress note on 05/07 by Page Quinonez Placed on telemetry for continued cardiac rhythm monitoring-Documented in Family medicine progress note on 05/07 by Page Quinonez Echo to evaluate for possible underlying cardiomyopathy and CXR w/findings related to CHF-Documented in Family medicine progress note on 05/07 by Page Quinonez Chest x ray :Findings may related to fluid overload from CHF. Recommend clinical correlation-Documented in Discharge summary on 05/07 by Page Quinonez MD Echo:EF is visually estimated at 55 % to 60 %-Documented in Discharge summary on 05/07 by Page Quinonez MD BNP-135.4-Documented in Laboratory RISKS: Paroxysmal supraventricular tachycardia -Documented in Family medicine progress note on 05/07 by Page Quinonez MD TREATMENTS: Consults cardiology Dr Campoverde,Electrophysiology Dr Peck- Documented in Discharge summary on 05/07 by Page Quinonez MD Cardizem 125 mg IV-Documented in medication snapshot Aspirin 81 mg -Documented in medication snapshot Electrophysiology study and radiofrequency ablation-Documented in OP note on by Pedro Peck (This form is maintained as a part of the permanent medical record) 2014 [email or web address]. All Rights Reserved [email or web address] [not provided] MTDD
== END 2019-05-07 12:39 | DRG 274 ==
LOC: EEVIPCON 19:38 → ERS 19:38 → 2SW 21:00 → OBSVTOIN 21:00
PROVIDERS: ADMIT Family Medicine; ATTEND Family Medicine
PROC: 02583ZZ Destruction of Conduction Mechanism, Percutaneous Approach (ICD-10-PCS; principal; 2019-05-06)
PROC: 02K83ZZ Map Conduction Mechanism, Percutaneous Approach (ICD-10-PCS; 2019-05-06)
PROC: 4A023FZ Measurement of Cardiac Rhythm, Percutaneous Approach (ICD-10-PCS; 2019-05-06)
PROC: 4A0234Z Measurement of Cardiac Electrical Activity, Percutaneous Approach (ICD-10-PCS; 2019-05-06)
DX: I47.1 Supraventricular tachycardia (principal); I31.3 Pericardial effusion (noninflammatory); I42.9 Cardiomyopathy, unspecified; K21.9 Gastro-esophageal reflux disease without esophagitis; Z90.81 Acquired absence of spleen; Z82.49 Family history of ischemic heart disease and other diseases of the circulatory system; Z84.89 Family history of other specified conditions; F10.11 Alcohol abuse, in remission; F19.11 Other psychoactive substance abuse, in remission
CPT/HCPCS: 36415; 71045; 76942; 80048; 80053; 83880; 84484; 85025; 85610; 85730; 93005; 93010; 93306; 93613; 93623; 93653; 94760; 96361; 96365; 99292; C1730; C1769; J1644; J1650; J2704; J3010